=== PATIENT | male | born 1960 | race Two or more races ===

== ENCOUNTER 2022-02-03 22:37 | Emergency (ER) | payer MEDICAID, OTHER ==
[~2022-02-03] VITALS: Ht 172.7 cm; Wt 67.1 kg
--- NOTE | 2022-02-03 22:50 | NUR ---
[facility]PA FOR C/O L EYE VISION LOSS X 1 WEEK. PATIENT ALERT AND ORIENTED X3. AMBULATORY WITH NON LABORED BREATHING. PATIENT IN BED 03 AWAITING MD SMITH.
--- NOTE | 2022-02-03 23:15 | NUR ---
[employer]ORERO[employer] CLERK @ BEDSIDE
--- NOTE | 2022-02-03 23:15 | NUR ---
@ BEDSIDE FOR EVAL
--- NOTE | 2022-02-03 23:31 | NUR ---
COVID SWAB DONE AND SENT TO LAB
[2022-02-03 23:34] LABS: BASOPHILS % (AUTO) 0.7 % (0.0-2.0); EOSINOPHILS % (AUTO) 2.4 % (0.0-6.0); HEMATOCRIT 35 % (39-51); HEMOGLOBIN 11.4 g/dL (13.5-17.5); LYMPHOCYTES # (AUTO) 1.8 K/uL (0.8-4.8); LYMPHOCYTES % (AUTO) 31.8 % (20.0-44.0); MEAN CORPUSCULAR HGB CONC 32 g/dl (31.0-36.0); MEAN CORPUSCULAR VOLUME 80 fL (80-96); MONOCYTES # (AUTO) 0.5 K/uL (0.1-1.30); MONOCYTES % (AUTO) 9.5 % (2.0-12.0); NEUTROPHILS # (AUTO) 3.2 K/uL (1.8-8.9); NEUTROPHILS % (AUTO) 55.6 % (43.0-81.0); PLATELET COUNT (AUTO) 335 K/uL (150-450); RED BLOOD CELL COUNT(AUTO) 4.41 MIL/uL (4.5-6.0); WHITE BLOOD COUNT (AUTO) 5.7 K/uL (4.3-11.0)
--- NOTE | 2022-02-03 23:35 | NUR ---
[facility] CALLED FOR BLS TRANSPORT. ETA 60-75 MINUTES.
--- NOTE | 2022-02-03 23:37 | NUR ---
REPORT GIVEN TO FACILITY
[2022-02-03 23:48] LABS: CARBON DIOXIDE 23 mmol/L (21-32); CHLORIDE 99 mmol/L (98-107); CREATININE 0.7 mg/dL (0.6-1.3); GLUCOSE 80 mg/dL (74-106); POTASSIUM 4.4 mmol/L (3.5-5.1); SODIUM SERUM 131 mmol/L (136-145); UREA NITROGEN, BLOOD 11 mg/dL (7-18)
--- NOTE | 2022-02-04 00:18 | NUR ---
IV CATHETER REMOVED AND PRESSURE APPLIED TO ACCESS UNTILL BLEEDING STOPPED.
[2022-02-04 00:43] VITALS: BP 140/81
--- NOTE | 2022-02-04 00:43 | NUR ---
[facility] AT BEDSIDE REPORT GIVEN. PATIENT BEING TRANSFERRED VIA AMBULANCE IN STABLE CONDITION.
--- NOTE | 2022-02-04 01:05 | NUR ---
PATIENT WAS PICKED UP BY [facility] AND TRANSFERRED BACK TO THE FACILITY IN STABLE CONDITION. REPORT GIVEN TO [facility]
== END 2022-02-04 01:06 ==
LOC: EDSEX 22:42 → ER 22:42
DX: H33.22 Serous retinal detachment, left eye (principal); I10 Essential (primary) hypertension; E11.9 Type 2 diabetes mellitus without complications; Z86.59 Personal history of other mental and behavioral disorders; Z86.69 Personal history of other diseases of the nervous system and sense organs
CPT/HCPCS: 36415; 80048-TC; 82962-TC; 84484-TC; 85025-TC; 85730-TC